=== PATIENT | male | born 1970 | race Caucasian/White ===

== ENCOUNTER 2017-07-03 23:42 | Inpatient (IN) | payer OTHER ==
[~2017-07-03] VITALS: Ht 175.3 cm; Wt 92.3 kg
--- NOTE | 2017-07-04 00:11 | ED GI/GU/ABDOMINAL COMPLAINT ---
History of Present Illness General Chief Complaint: General Adult Stated Complaint: "ABD PAIN, VOMITTING X2DAYS" Source: patient, family Exam Limitations: no limitations Vital Signs & Intake/Output Vital Signs & Intake/Output Vital Signs Date Time Temp Pulse Resp B/P B/P Pulse O2 O2 Flow FiO2 Mean Ox Delivery Rate 07/04 022 98.3 93 20 116/68 95 Room Air 07/04 0059 98.3 77 18 127/72 96 07/04 0058 98 Room Air 07/04 0036 99.2 90 20 122/79 97 Room Air Allergies Coded Allergies: No Known Allergies (07/04/17) Triage Nurses Notes Reviewed? yes Duration: day(s):, waxing and waning Quality/Severity: sharpness Location: lower abdomen and right lower quadrant Activities at Onset: none Prior Abdominal Problems: none HPI: 47-year-old gentleman presents with 2 day history of profound vomiting and diffuse lower abdominal pain. He states, "I just keep vomiting all the time. I can't stop vomiting. I think I have food poisoning." He has no fever or diarrhea chills shortness of breath or chest pain. He states he is otherwise well. He does not identify any suspicious food ingestions. Past History Travel History Traveled to [place] past 21 day No Medical History Any Pertinent Medical History? see below for history Surgical History Surgical History: none Psychosocial History What is your primary language [place] Citizen Family History Hx Contributory? No Review of Systems Review of Systems Constitutional: Reports: no symptoms. EENTM: Reports: no symptoms. Respiratory: Reports: no symptoms. Cardiovascular: Reports: no symptoms. GI: Reports: no symptoms. Genitourinary: Reports: no symptoms. Musculoskeletal: Reports: no symptoms. Skin: Reports: no symptoms. Neurological/Psychological: Reports: no symptoms. Hematologic/Endocrine: Reports: no symptoms. Immunologic/Allergic: Reports: no symptoms. All Other Systems: Reviewed and Negative Physical Exam Physical Exam Gastrointestinal: soft Comments: Review of Systems - except as otherwise noted in HPI Physical Exam Physical Exam General Appearance: well developed/nourished, no apparent distress Head: atraumatic, normal appearance Eyes: Bilateral: normal appearance. Ears, Nose, Throat: normal pharynx, normal ENT inspection Neck: normal inspection, supple, full range of motion Respiratory: normal breath sounds, chest non-tender, no respiratory distress, quiet respiration, lungs clear Cardiovascular: regular rate/rhythm Gastrointestinal: normal bowel sounds, soft, tender to rlq and suprapubic region. no organomegaly Back: normal inspection, normal range of motion Extremities: normal inspection, normal capillary refill, normal range of motion, no edema Neurologic/Psych: no motor/sensory deficits, awake, alert, oriented x 3 Skin: intact, normal color, warm/dry Core Measures ACS in differential dx? No Sepsis Present: No Sepsis Focused Exam Completed? No Progress Differential Diagnosis: appendicitis, cholecystitis, diverticulitis, gastritis, hepatitis Plan of Care: Orders Procedure Date/time Status Nothing by Mouth 07/04 B Active Vital Signs 07/04 0242 Active Teach/Educate 07/04 024 Active Pain Treatment and Response 07/04 0242 Active Nutritional Intake, Monitor 07/04 0242 Active Isolation 07/04 0242 Active Intake & Output 07/04 0242 Active Patient Care Conference 07/04 0242 Active Activity/Ambulation 07/04 0242 Active Pathway - chart 07/04 0152 Active Code Status 07/04 0152 Active Patient Data 07/[address] in observation 07/04 0133 Active URINALYSIS 07/04 0011 Complete VTE Mechanical Prophylaxis 07/04 UNK Active Vital Signs 07/04 UNK Active Intake & Output 07/04 UNK Active Activity/Ambulation 07/04 UNK Active TROPONIN LEVEL 07/03 2348 Complete LIPASE 07/03 2348 Complete HEPATIC FUNCTION PANEL 07/03 2348 Complete CBC WITHOUT DIFFERENTIAL 07/03 2348 Complete BASIC METABOLIC PANEL 07/03 2348 Complete AMYLASE 07/03 2348 Complete EKG 07/03 2348 Active Current Medications Sig/Nolberto Start time Last Medication Dose Stop Time Status Admin Ampicillin Sodium/ 3,000 MG Q6 07/04 0600 AC Sulbactam Sodium (Unasyn) Sodium Chloride 100 ML (Normal Saline 0.9%) Acetaminophen 650 MG Q6P PRN 07/04 0200 AC (Tylenol) Dextrose/Sodium 1,000 ML .Q10H 07/04 0200 AC 07/04 Chloride 0334 (D5W-1/2 Normal Saline 1000ML) Ketorolac 15 MG Q6-PRN PRN 07/04 0200 AC Tromethamine (Toradol) Morphine Sulfate 2 MG Q2P PRN 07/04 0200 AC (MORPHINE SULFATE) Morphine Sulfate 4 MG Q2P PRN 07/04 0200 AC (MORPHINE SULFATE) Ondansetron HCl 4 MG Q6P PRN 07/04 199 AC (Zofran) Laboratory Tests 07/04/17 0255: Urinalysis LIGHT H, Urine Color YEL, Urine Clarity CLEAR, Urine pH 6.5, Ur Specific [place] 1.015, Urine Protein TRACE H, Urine Ketones NEG, Urine Nitrite NEG, Urine Bilirubin NEG, Urine Urobilinogen 1.0, Ur Leukocyte Esterase NEG, Ur Microscopic SEDIMENT EXAMINED, Urine RBC 1-3, Urine WBC RARE, Urine Mucus FEW, Urine Hemoglobin NEG, Urine Glucose NEG 07/04/17 0021: Anion Gap 12, Estimated GFR > 60, BUN/Creatinine Ratio 15.6, Glucose 172 H, Calcium 8.9, Total Bilirubin 1.4 H, Direct Bilirubin 0.2, AST 27, ALT 41, Alkaline Phosphatase 62, Troponin I < 0.01, Total Protein 6.8, Albumin 3.9, Amylase 44, Lipase 72, CBC w Diff NO MAN DIFF REQ, RBC 4.67 L, MCV 90.3, MCH 30.8, MCHC 34.1, RDW 12.9, MPV 8.9, Gran % 82.4 H, Lymphocytes % 11.4 L, Monocytes % 5.8, Eosinophils % 0.2, Basophils % 0.2, Absolute Granulocytes 12.8 H, Absolute Lymphocytes 1.8, Absolute Monocytes 0.9 H, Absolute Eosinophils 0, Absolute Basophils 0 07/03/17 2348: D-Dimer High Sensitivty Cancelled Diagnostic Imaging: Viewed by Me: CT Scan. Discussed w/RAD: CT Scan. Radiology Impression: PATIENT: ROBEL BOLTON PRESENT AGE: 47 PATIENT ACCOUNT NO: [id number] : 70 LOCATION: [facility] ORDERING PHYSICIAN: Tong Mayer MD SERVICE DATE: 07/04/17 EXAM TYPE: CAT - CT ABD & PELVIS W/O IV CONTRAS EXAMINATION: CT ABDOMEN AND PELVIS WITHOUT CONTRAST CLINICAL INFORMATION: Right lower quadrant and suprapubic tenderness. COMPARISON: None TECHNIQUE: Multidetector volumetric imaging was performed from the superior aspect of the liver through the pubic symphysis. Sagittal and coronal reformatted images were obtained on the technologist's workstation. DLP: 492 mGy-cm FINDINGS: LUNG BASES: The visualized lung bases are unremarkable. LIVER, GALLBLADDER, AND BILIARY TREE: The liver is normal in size, shape, and attenuation. No focal hepatic lesion or biliary ductal dilatation is present. The gallbladder is unremarkable with no evidence of radiopaque gallstones, gallbladder wall thickening, or obvious pericholecystic inflammatory changes. PANCREAS: Unremarkable. SPLEEN: Unremarkable. ADRENAL GLANDS: Unremarkable. KIDNEYS AND URETERS: The kidneys are normal in size, shape, and attenuation. No hydronephrosis, hydroureter, or calculi seen. No perinephric stranding. BLADDER: Unremarkable. GASTROINTESTINAL TRACT: Small hiatal hernia. The stomach is otherwise unremarkable. The small bowel is normal in caliber. There is no obstruction. Prominent inflammatory changes are seen in the right lower quadrant. There is an appendicolith which measures 0.4 cm in diameter, and up to 0.6 cm in length. This is near the base of the appendix. The appendix is ill- defined, and measures up to 1.4 cm in diameter. There are small foci of gas in the adjacent soft tissues which are not definitively within a bowel lumen, suspicious for perforation. This can be seen on series 2 images 60, 62, and 63. There is no definite fluid collection. ABDOMINAL WALL: No significant hernia is appreciated. LYMPH NODES: Normal. VASCULAR: Unremarkable. PELVIC VISCERA: The prostate and seminal vesicles are unremarkable. OSSEOUS STRUCTURES: No acute or suspicious osseous abnormality. IMPRESSION: Acute appendicitis. Prominent inflammatory changes in the right lower quadrant surrounding the appendix. Small foci of gas are also seen in the region of inflammation which are likely extraluminal, suspicious for a perforation. No fluid collection. This critical result was discussed with Tong Mayer MD by telephone at 07/04/2017 12 :40 AM and it was ascertained that the content and urgency of the report was understood at the time of direct communication. DICTATED BY: Sree Miller MD DATE/TIME DICTATED:07/04/1736 LOOM SETTER FOURDRINIER:ANTIONE DATE/TIME TRANSCRIBED:07/04/1736 CONFIDENTIAL, DO NOT COPY WITHOUT APPROPRIATE AUTHORIZATION. <Electronically signed in Other Vendor System> SIGNED BY: Sree Miller MD 07/04/17 0044 Initial ED EKG: nsr, no acute changes. Departure Departure Disposition: STILL A PATIENT Condition: Stable Clinical Impression Primary Impression: Appendicitis Referrals: Christin Moon MD (PCP/Family) Departure Forms: Customer Survey General Discharge Information Comments 07/04/17, 0:41... discussed with [facility]... pt with enlarged appy, with gas, suggestive of perforation. Observation Note Spoke With: Marlin BOURNE,Nickolas N. Place Patient In: Non-ED OBS Care Area Rationale for Observation: My rational for observation is as follows . pt with perforated appendicitis, otherwise well... to be placed in observation prior to surgery in AM.
[2017-07-04 00:43] LABS: ABSOLUTE BASOPHIL COUNT 0 /CUMM (0.0-0.2); ABSOLUTE EOSINOPHIL COUNT 0 /CUMM (0.0-0.7); ABSOLUTE GRANULOCYTE CT 12.8 /CUMM (1.4-6.5); ABSOLUTE LYMPH COUNT 1.8 /CUMM (1.2-3.4); ABSOLUTE MONOCYTE COUNT 0.9 /CUMM (0.10-0.60); BASOPHIL % 0.2 % (0.0-2.0); EOSINOPHIL % 0.2 % (0-5); HEMATOCRIT 42.2 % (42-52); MEAN CORPUSCULAR HGB 30.8 PG (27.0-31.0); MEAN CORPUSCULAR HGB CONC 34.1 G/DL (33.0-37.0); MEAN CORPUSCULAR VOLUME 90.3 FL (80.0-94.0); MEAN PLATELET VOLUME 8.9 FL (7.4-10.4); PLATELET COUNT 194 /CUMM (130-400); RBC DISTRIBUTION WIDTH 12.9 % (11.5-14.5); RED BLOOD CELL CT 4.67 /CUMM (4.70-6.10); WHITE BLOOD CELL COUNT 15.5 /CUMM (4.8-10.8)
--- NOTE | 2017-07-04 00:44 | CT SCAN REPORT ---
EXAMINATION: CT ABDOMEN AND PELVIS WITHOUT CONTRAST CLINICAL INFORMATION: Right lower quadrant and suprapubic tenderness. COMPARISON: None TECHNIQUE: Multidetector volumetric imaging was performed from the superior aspect of the liver through the pubic symphysis. Sagittal and coronal reformatted images were obtained on the technologist's workstation. DLP: 492 mGy-cm FINDINGS: LUNG BASES: The visualized lung bases are unremarkable. LIVER, GALLBLADDER, AND BILIARY TREE: The liver is normal in size, shape, and attenuation. No focal hepatic lesion or biliary ductal dilatation is present. The gallbladder is unremarkable with no evidence of radiopaque gallstones, gallbladder wall thickening, or obvious pericholecystic inflammatory changes. PANCREAS: Unremarkable. SPLEEN: Unremarkable. ADRENAL GLANDS: Unremarkable. KIDNEYS AND URETERS: The kidneys are normal in size, shape, and attenuation. No hydronephrosis, hydroureter, or calculi seen. No perinephric stranding. BLADDER: Unremarkable. GASTROINTESTINAL TRACT: Small hiatal hernia. The stomach is otherwise unremarkable. The small bowel is normal in caliber. There is no obstruction. Prominent inflammatory changes are seen in the right lower quadrant. There is an appendicolith which measures 0.4 cm in diameter, and up to 0.6 cm in length. This is near the base of the appendix. The appendix is ill-defined, and measures up to 1.4 cm in diameter. There are small foci of gas in the adjacent soft tissues which are not definitively within a bowel lumen, suspicious for perforation. This can be seen on series 2 images 60, 62, and 63. There is no definite fluid collection. ABDOMINAL WALL: No significant hernia is appreciated. LYMPH NODES: Normal. VASCULAR: Unremarkable. PELVIC VISCERA: The prostate and seminal vesicles are unremarkable. OSSEOUS STRUCTURES: No acute or suspicious osseous abnormality. IMPRESSION: Acute appendicitis. Prominent inflammatory changes in the right lower quadrant surrounding the appendix. Small foci of gas are also seen in the region of inflammation which are likely extraluminal, suspicious for a perforation. No fluid collection. This critical result was discussed with Tong Mayer MD by telephone at 07/04/2017 12:40 AM and it was ascertained that the content and urgency of the report was understood at the time of direct communication.
[2017-07-04 00:53] LABS: GRANULOCYTE % 82.4 % (42.2-75.2)
--- NOTE | 2017-07-04 01:46 | History & Physical Pre-Op ---
General Information and HPI MD Statement: I have seen and personally examined ROBEL BOLTON and documented this H&P. The patient is a 47 year old M who presented with a patient stated chief complaint of [abdominal pain]. Source of Information: patient Exam Limitations: no limitations History of Present Illness: 47-year-old male presents to the ER with severe right lower quadrant abdominal pain. He states that 2 days ago he started with sudden onset of nausea which progressed to vomiting that persisted throughout the evening and all night long. He felt better the following day but started to get worsening abdominal pain throughout the day. This evening he came to the ER with severe right lower quadrant abdominal pain. He states he had a T-max of 100.8 at home. Upon arrival to the ER, he received IV antiemetics and pain medication and his symptoms significantly improved to the point where he is nearly asymptomatic at this time. CT scan was performed which shows acute appendicitis with questionable microperforation. Surgery was consulted for further management. He denies any previous symptoms or any other significant medical problems. No previous abdominal surgeries. Allergies/Medications Allergies: Coded Allergies: No Known Allergies (07/04/17) Home Med list Acetaminophen (Tylenol Extra Strength) 500 MG TABLET 1 TAB PO Q4-6 PRN PRN pain control alternatively to percocet. do not combine. Docusate Sodium (Colace) 100 MG CAPSULE 1 CAP PO BID PRN CONSTIPATION stool softener available over the counter. hold for loose stool. Oxycodone HCl/Acetaminophen (Percocet 5-325 MG Tablet) 5 MG-325 MG TABLET 1-2 TAB PO Q4-6 PRN PRN pain control tylenol alternatively. do not combine. 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 Review of Systems Review of Systems: Review of systems: See HPI, all other systems negative. Constitutional: See HPI HEENT: No visual changes no sore throat no congestion Cardiovascular: No chest pain ,palpitation , orthopnea or ankle swelling Skin: No jaundice no rashes Respiratory: No dyspnea cough sputum or hemoptysis GI: See HPI : No dysuria no hematuria Musclulo skeletal: No back pain no neck pain, Neurologic: No numbness no confusion Psych: No stress anxiety or depression,. Heme/endocrine: No bruising no bleeding no polyuria or polydipsia Immunology: No splenectomy or history of AIDS Review of Systems Constitutional: Reports: chills, fever. EENTM: Reports: no symptoms, see HPI. Exam & Diagnostic Data Last 24 Hrs of Vital Signs/I&O Vital Signs Date Time Temp Pulse Resp B/P B/P Pulse O2 O2 Flow FiO2 Mean Ox Delivery Rate 07/04 005 98.3 77 18 127/72 96 07/04 0058 98 Room Air 07/04 0036 99.2 90 20 122/79 97 Room Air Intake & Output 07/04 0800 07/04 0000 07/03 1600 Intake Total Output Total Balance Patient 193 lb Weight Physical Exam: Well-developed well-nourished person in no acute distress HEENT: Normal EENT exam, extraocular motion intact, Pharynx normal. No swelling or edema. Neck: Supple, no lymphadenopathy, normal range of motion without pain or tenderness Back: Nontender, no CVA tenderness. Full range of motion Cardiovascular: Regular rate and rhythms no murmurs, normal JVP Respiratory: Chest nontender. No respiratory distress. Breath sounds clear to auscultation bilaterally Abdomen: Soft, tenderness in the right lower quadrant over McBurney's point. Positive Rovsing sign. No peritoneal signs. No significant guarding. Equivocal psoas sign. Nondistended, no appreciable organomegaly. Normal bowel sounds. No ascites Extremity: No edema, no calf tenderness to palpation, normal and equal pulses. Neuro: Alert oriented x3, motor sensory normal, cranial nerves II through XII grossly intact. Skin: No appreciable rash on exposed skin, skin is warm and dry. Psych: Mood and affect is normal, memory and judgment is normal. Last 24 Hrs of Labs/Reid: Laboratory Tests 07/04/17 0021: Anion Gap 12, Estimated GFR > 60, BUN/Creatinine Ratio 15.6, Glucose 172 H, Calcium 8.9, Total Bilirubin 1.4 H, Direct Bilirubin 0.2, AST 27, ALT 41, Alkaline Phosphatase 62, Troponin I < 0.01, Total Protein 6.8, Albumin 3.9, Amylase 44, Lipase 72, CBC w Diff NO MAN DIFF REQ, RBC 4.67 L, MCV 90.3, MCH 30.8, MCHC 34.1, RDW 12.9, MPV 8.9, Gran % 82.4 H, Lymphocytes % 11.4 L, Monocytes % 5.8, Eosinophils % 0.2, Basophils % 0.2, Absolute Granulocytes 12.8 H, Absolute Lymphocytes 1.8, Absolute Monocytes 0.9 H, Absolute Eosinophils 0, Absolute Basophils 0 07/03/17 2348: D-Dimer High Sensitivty Cancelled Diagnostic Data Other Results PATIENT: ROBEL BOLTON PRESENT AGE: 47 PATIENT ACCOUNT NO: [id number] : 70 LOCATION: ER ORDERING PHYSICIAN: Tong Mayer MD SERVICE DATE: 07/04/17 EXAM TYPE: CAT - CT ABD & PELVIS W/O IV CONTRAS EXAMINATION: CT ABDOMEN AND PELVIS WITHOUT CONTRAST CLINICAL INFORMATION: Right lower quadrant and suprapubic tenderness. COMPARISON: None TECHNIQUE: Multidetector volumetric imaging was performed from the superior aspect of the liver through the pubic symphysis. Sagittal and coronal reformatted images were obtained on the technologist's workstation. DLP: 492 mGy-cm FINDINGS: LUNG BASES: The visualized lung bases are unremarkable. LIVER, GALLBLADDER, AND BILIARY TREE: The liver is normal in size, shape, and attenuation. No focal hepatic lesion or biliary ductal dilatation is present. The gallbladder is unremarkable with no evidence of radiopaque gallstones, gallbladder wall thickening, or obvious pericholecystic inflammatory changes. PANCREAS: Unremarkable. SPLEEN: Unremarkable. ADRENAL GLANDS: Unremarkable. KIDNEYS AND URETERS: The kidneys are normal in size, shape, and attenuation. No hydronephrosis, hydroureter, or calculi seen. No perinephric stranding. BLADDER: Unremarkable. GASTROINTESTINAL TRACT: Small hiatal hernia. The stomach is otherwise unremarkable. The small bowel is normal in caliber. There is no obstruction. Prominent inflammatory changes are seen in the right lower quadrant. There is an appendicolith which measures 0.4 cm in diameter, and up to 0.6 cm in length. This is near the base of the appendix. The appendix is ill-defined, and measures up to 1.4 cm in diameter. There are small foci of gas in the adjacent soft tissues which are not definitively within a bowel lumen, suspicious for perforation. This can be seen on series 2 images 60, 62, and 63. There is no definite fluid collection. ABDOMINAL WALL: No significant hernia is appreciated. LYMPH NODES: Normal. VASCULAR: Unremarkable. PELVIC VISCERA: The prostate and seminal vesicles are unremarkable. OSSEOUS STRUCTURES: No acute or suspicious osseous abnormality. IMPRESSION: Acute appendicitis. Prominent inflammatory changes in the right lower quadrant surrounding the appendix. Small foci of gas are also seen in the region of inflammation which are likely extraluminal, suspicious for a perforation. No fluid collection. This critical result was discussed with Tong Mayer MD by telephone at 07/04/2017 12:40 AM and it was ascertained that the content and urgency of the report was understood at the time of direct communication. DICTATED BY: Paul BOURNE,Sree DATE/TIME DICTATED:07/04/1736 LOG DECKMAN:ANTIONE DATE/TIME TRANSCRIBED:07/04/1736 Assessment/Plan Assessment/Plan: 47-year-old male presents to the ER with abdominal pain in the right lower quadrant, with a CAT scan positive for acute appendicitis Patient placed in observation, he will require laparoscopic appendectomy which will occur some time tomorrow, hopefully late morning. If surgery goes without complications, he may be able to be discharged home after. He will be kept n.p.o., on IV fluids, given Unasyn 3 g every 6 hours, IV antiemetics and IV narcotics as needed. Patient understands and agrees with this with plan, discussed with Nickolas Isaac MD. As Ranked By This Provider Problem List: 1. Appendicitis, acute
--- NOTE | 2017-07-04 01:46 | Admission Core Measures ---
Acute Coronary Syndrome (CM) ACS Core Measures Acute Coronary Syndrome Diagnosis No Congestive Heart Failure (NEW) CHF Core Measures Congestive Heart Failure Diagnosis No Cerebrovascular Accident (NEW) CVA Core Measures CVA/TIA Diagnosis No Venous Thromboembolism VTE Core [place] (View Protocol) VTE Risk Factors Age>40 No Mechanical VTE Prophylaxis d/t N/A MechProphylax Ordered No VTE Pharm Prophylaxis d/t NA PharmProphylax ordered Problem List As ranked by this Provider includes Assessment & Plan 1. Appendicitis, acute
[2017-07-04 02:29] VITALS: BP 116/68
[2017-07-04 06:20] VITALS: BP 118/72
[2017-07-04 12:00] VITALS: BP 130/80
--- NOTE | 2017-07-04 12:06 | History & Physical Pre-Op ---
See Addendum General Information and HPI Source of Information: patient Exam Limitations: no limitations History of Present Illness: CC: abdominal pain HPI: 47-year-old otherwise healthy no meds nonsmoker nondiabetic no family history of appendicitis on Sunday after a normal celebration with lots of food at 9 PM he started having abdominal pain felt the gas bubble and vomiting overnight which persisted into yesterday and came to the ER. Initially he thought was food poisoning pain was mostly lower and then especially on the right side no dysuria no bleeding per rectum no bloody urine pain didn't radiate its constant its relieved with IV analgesics no recent flulike symptoms no changes in bowel habits weight or appetite no constipation he did have a fever yesterday. I've reviewed the [facility]. No history of GERD, PUD, bleeding problems, heart disease or issues with anesthesia. 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 Review of Systems Review of Systems: Constitutional: No fever, sweats or weight loss ENMT: No sore throat Cardiovascular: No chest pain, palpitations or leg swelling Respiratory: No shortness of breath, cough, or sputum or dyspnea on exertion GI: No GERD or bleeding per rectum : No dysuria or hematuria Musculoskeletal: No new muscle weakness, bone or joint pain Skin / Breast: No jaundice, rashes or itching Psychiatric: No history of drug or alcohol abuse no depression or anxiety Hematologic / lymphatic system: No problems with excessive bleeding, bruising, or blood clots Exam & Diagnostic Data Last 24 Hrs of Vital Signs/I&O I reviewed Vital Signs Date Time Temp Pulse Resp B/P B/P Pulse O2 O2 Flow FiO2 Mean Ox Delivery Rate 07/04 1200 98.6 112 20 130/80 94 07/04 0620 98.5 89 18 118/72 96 Room Air 07/04 0229 98.3 93 20 116/68 95 Room Air 07/04 0059 98.3 77 18 127/72 96 07/04 0058 98 Room Air 07/04 0036 99.2 90 20 122/79 97 Room Air I reviewed Intake & Output 07/04 1600 07/04 0800 07/04 0000 Intake Total 900 Output Total 200 Balance 700 Intake, IV 900 Output, Urine 200 Patient 193 lb Weight Physical Exam: Constitutional: pleasant, no acute distress, conversant Eyes: sclera anicteric ENMT: ears and nose atraumatic, moist mucous membranes, good dentition, no lip lesions Neck: Supple, trachea is midline, no cervical or supraclavicular adenopathy and no palpable thyromegaly Cardiovascular: S1, S2, no murmurs, no peripheral edema Respiratory: clear to auscultation with normal respiratory effort and no intercostal retractions GI: abdomen soft, McBurney's point tenderness, nondistended, no palpable hepatosplenomegaly Extremities / lymphatics: symmetrically warm, free range of motion no peripheral edema, no cervical, supraclavicular, axillary, or inguinal adenopathy Musculoskeletal: Did not evaluate gait and station, no digital cyanosis, good muscle strength and tone no atrophy, motor grossly 5 out of 5 throughout Skin: no jaundice, no rashes warm, nondiaphoretic, no areas of erythema or induration Psychiatric: mood and affect are appropriate and alert and oriented to person place and time Last 24 Hrs of Labs/Reid: I reviewed Laboratory Tests 07/04/17 0255: Urinalysis LIGHT H, Urine Color YEL, Urine Clarity CLEAR, Urine pH 6.5, Ur Specific [place] 1.015, Urine Protein TRACE H, Urine Ketones NEG, Urine Nitrite NEG, Urine Bilirubin NEG, Urine Urobilinogen 1.0, Ur Leukocyte Esterase NEG, Ur Microscopic SEDIMENT EXAMINED, Urine RBC 1-3, Urine WBC RARE, Urine Mucus FEW, Urine Hemoglobin NEG, Urine Glucose NEG 07/04/17 0021: Anion Gap 12, Estimated GFR > 60, BUN/Creatinine Ratio 15.6, Glucose 172 H, Calcium 8.9, Total Bilirubin 1.4 H, Direct Bilirubin 0.2, AST 27, ALT 41, Alkaline Phosphatase 62, Troponin I < 0.01, Total Protein 6.8, Albumin 3.9, Amylase 44, Lipase 72, CBC w Diff NO MAN DIFF REQ, RBC 4.67 L, MCV 90.3, MCH 30.8, MCHC 34.1, RDW 12.9, MPV 8.9, Gran % 82.4 H, Lymphocytes % 11.4 L, Monocytes % 5.8, Eosinophils % 0.2, Basophils % 0.2, Absolute Granulocytes 12.8 H, Absolute Lymphocytes 1.8, Absolute Monocytes 0.9 H, Absolute Eosinophils 0, Absolute Basophils 0 07/03/17 2348: D-Dimer High Sensitivty Cancelled Diagnostic Data Other Results PATIENT: ROBEL BOLTON PRESENT AGE: 47 PATIENT ACCOUNT NO: [id number] : 70 LOCATION: [facility] ORDERING PHYSICIAN: Tong Mayer MD SERVICE DATE: 07/04/17-0011 EXAM TYPE: CAT - CT ABD & PELVIS W/O IV CONTRAS EXAMINATION: CT ABDOMEN AND PELVIS WITHOUT CONTRAST CLINICAL INFORMATION: Right lower quadrant and suprapubic tenderness. COMPARISON: None TECHNIQUE: Multidetector volumetric imaging was performed from the superior aspect of the liver through the pubic symphysis. Sagittal and coronal reformatted images were obtained on the technologist's workstation. DLP: 492 mGy-cm FINDINGS: LUNG BASES: The visualized lung bases are unremarkable. LIVER, GALLBLADDER, AND BILIARY TREE: The liver is normal in size, shape, and attenuation. No focal hepatic lesion or biliary ductal dilatation is present. The gallbladder is unremarkable with no evidence of radiopaque gallstones, gallbladder wall thickening, or obvious pericholecystic inflammatory changes. PANCREAS: Unremarkable. SPLEEN: Unremarkable. ADRENAL GLANDS: Unremarkable. KIDNEYS AND URETERS: The kidneys are normal in size, shape, and attenuation. No hydronephrosis, hydroureter, or calculi seen. No perinephric stranding. BLADDER: Unremarkable. GASTROINTESTINAL TRACT: Small hiatal hernia. The stomach is otherwise unremarkable. The small bowel is normal in caliber. There is no obstruction. Prominent inflammatory changes are seen in the right lower quadrant. There is an appendicolith which measures 0.4 cm in diameter, and up to 0.6 cm in length. This is near the base of the appendix. The appendix is ill-defined, and measures up to 1.4 cm in diameter. There are small foci of gas in the adjacent soft tissues which are not definitively within a bowel lumen, suspicious for perforation. This can be seen on series 2 images 60, 62, and 63. There is no definite fluid collection. ABDOMINAL WALL: No significant hernia is appreciated. LYMPH NODES: Normal. VASCULAR: Unremarkable. PELVIC VISCERA: The prostate and seminal vesicles are unremarkable. OSSEOUS STRUCTURES: No acute or suspicious osseous abnormality. IMPRESSION: Acute appendicitis. Prominent inflammatory changes in the right lower quadrant surrounding the appendix. Small foci of gas are also seen in the region of inflammation which are likely extraluminal, suspicious for a perforation. No fluid collection. This critical result was discussed with Tong Mayer MD by telephone at 07/04/2017 12:40 AM and it was ascertained that the content and urgency of the report was understood at the time of direct communication. 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 I explained to the patient that this is a potentially life-threatening infection for which I recommend an appendectomy. I feel antibiotics often alone are not enough and sometimes there is an occult malignancy. The severity of infection is related to the chance of perforation which usually increases after about 24 hours fortunately the patient is presenting earlier. Depending on what we find intraoperatively they may be discharged the same day or may need to stay for more IV antibiotics, at depends. I also discussed the possibility of a postoperative infection whether superficial or deep, this is also related to the initial severity and may also appear even a week later after an initial interval of well-being during the recovery. I explained the operation we usually do it laparoscopically rarely converting to open, depending on the amount of inflammation and whether the anatomy is very unusual all to avoid inadvertent injury to surrounding surrounding structures such as bowel and blood vessels and ureter. We also discussed the potential risks, benefits and alternatives to the procedure and surgery in general, issues that included but were not limited to, anesthetic risks hemorrhage requiring transfusion, the risk of transfusion itself, infection, heart attack, stroke, . As Ranked By This Provider Problem List: 1. Appendicitis, acute
--- NOTE | 2017-07-04 12:40 | Patient Discharge Instructions ---
Discharge Instructions General Discharge Information You were seen/treated for: acute appendicitis with perforation You had these procedures: laparoscopic appendectomy (07/04/17) Watch for these problems: fever>101.3, increased pain, redness/swelling/drainage, dizziness, shortness of breath, chest pains No bath, but you may shower: Yes Other wound care: Allow white steri strips to fall off on their own Keep incisions clean & dry Special Instructions: Take pain medication as needed No work until cleared by surgeon Follow-up in the office in 7-10 days Diet Continue normal diet: Yes Recommended Diet: Regular Activity Full Activity/No Limits: No Activity Self Limited: Yes Pounds, do NOT lift more than: 10 Other activity limits: no heavy lifting. no strenuous activity. Acute Coronary Syndrome Inclusion Criteria At DC or during hospital stay patient has or had the following: ACS DIAGNOSIS No Discharge Core Measures Meds if any: Prescribed or Continued at Discharge Meds if any: NOT Prescribed or Continued at Discharge Congestive Heart Failure Inclusion Criteria At DC or during hospital stay patient has or had the following: CHF DIAGNOSIS No Discharge Core Measures Meds if any: Prescribed or Continued at Discharge Meds if any: NOT Prescribed or Continued at Discharge Cerebrovascular accident Inclusion Criteria At DC or during hospital stay patient has or had the following: CVA/TIA Diagnosis No Discharge Core Measures Meds if any: Prescribed or Continued at Discharge Meds if any: NOT Prescribed or Continued at Discharge Venous thromboembolism Inclusion Criteria VTE Diagnosis No VTE Type NONE VTE Confirmed by (Test) NONE Discharge Core Measures - Per Current guidelines, there needs to be overlap - treatment for the first 5 days of Warfarin therapy. - If discharged on Warfarin prior to 5 days of - overlap therapy, the patient will need to be - assessed for post discharge needs including - *Post discharge parental anticoagulation - *Warfarin and/or parental anticoagulation education - *Follow up date to check INR post discharge At least 5 days overlap therapy as Inpatient No Meds if any: Prescribed or Continued at Discharge Note: Overlap Therapy is Warfarin and Anticoagulant Meds if any: NOT Prescribed or Continued at Discharge
[2017-07-04] MEDS ORDERED: PERCOCET 5-3251 EACH PO (12:41)
[2017-07-04] MEDS ORDERED: COLACE100 M1 PO (12:41)
[2017-07-04] MEDS ORDERED: TYLENOL EXTRA500 M2 PO (12:41)
--- NOTE | 2017-07-04 15:15 | Operative Report ---
Operative/Inv Procedure Report Surgery Date: 07/04/17 Name of Procedure: Laparoscopic appendectomy Pre-Operative Diagnosis: Acute appendicitis Post-Operative Diagnosis: Same, perforated Estimated Blood Loss: scant Surgeon/Field Return Repairer: Marlin BOURNE,Nickolas GUNTER Anesthesia: general endotracheal tube Operative/Procedure Note Note: Patient was placed on the OR table in the supine position. After successful induction of general anesthesia the patient's abdomen was prepped clipped and draped in the usual sterile fashion The left arm was tucked. Local anesthetic was injected at the top of the umbilicus and entry into the peritoneum was established via the open Costello technique: a one cm curved incision was made at the top of the umbilicus, the linea alba was secured between 2 pediatric Mona clamps and incised vertically, 0-Vicryl stay sutures were placed on each side and then while retracting upwards, the peritoneal layer was entered sharply, then through that small opening, using an S retractor acting like a shoehorn, a 10 mm blunt trocar was inserted obliquely to the right and secured with the stay sutures. The gas was turned on to maximum of 15 mm, two 5 mm dissecting ports were then inserted, one suprapubic and one left lower quadrant, laterally. We used a local anesthetic needle to guide their trajectories, particular attention was given to avoid injury to the bowel, the bladder and the epigastric vessels. At this point there was pus and fibrin peel in the lower abdomen more in the right lower quadrant. Then our attention was directed to the right lower quadrant, the small bowel was swept superiorly and medially, revealing the base of the cecum. A perforated appendix was then mobilized by it from the lateral and inferior peritoneal attachments using cautery. Using a combination of a [place] dissector, peanut dissector and a Sindhu clamp, a window was developed between the mesoappendix and the base of the appendix. This window is then used to divide the appendix at the base and the mesoappendix with a linear stapling device, separately, using an intestinal cartridge for the appendix and a vascular cartridge for the mesoappendix; the division of the appendix includes a small flange of cecal base. The appendix is lowered into an Endobag and set aside. The staple lines were checked for bleeding and small oozing was controlled with light zaps of the cautery. We deliberately irrigate the area including up by the liver and down in the pelvis, several rounds, also trying to get the fibrin peel whenever possible, checking the staple lines and each time to make sure that there is no ongoing bleeding. Next the instruments and the trochars and Endobag are removed, letting the gas out. We closed the umbilical fascial incision with a [id number] 0 vicryl suture, then the 3 skin incisions are closed with multiple interrupted subcuticular 4-0 Biosyn sutures, 3 for the umbilical, 1 each for the smaller ones, then covered with Mastisol, Steri-Strips and Band-Aids. EBL minimal Lap and sponge and sponge counts: correct Wound expectancy: infected IV fluids: crystalloid Complications: none Patient tolerated the procedure well was awakened and extubated and returned to the recovery room in satisfactory condition.
[2017-07-04 16:43] VITALS: BP 102/58
[2017-07-04 22:05] VITALS: BP 112/80
--- NOTE | 2017-07-05 00:08 | PN- General Surgery ---
Subjective Subjective: POC FEELING OK, SOME ABD SORENESS. NO N/V. LOIS CLEARS. +VOID, DARK IN COLOR PER PT Objective Vital Signs and I&Os Vital Signs Date Time Temp Pulse Resp B/P B/P Pulse O2 O2 Flow FiO2 Mean Ox Delivery Rate 07/04 2205 98.0 73 20 112/80 96 Room Air 07/04 1643 98.7 78 18 102/58 95 Room Air 07/04 1200 98.6 112 20 130/80 94 07/04 0620 98.5 89 18 118/72 96 Room Air 07/04 0229 98.3 93 20 116/68 95 Room Air 07/04 0059 98.3 77 18 127/72 96 07/04 0058 98 Room Air 07/04 0036 99.2 90 20 122/79 97 Room Air Intake & Output 07/05 0800 07/05 0000 07/04 1600 07/04 0800 07/04 0000 07/03 1600 Intake Total 1800 900 900 Output Total 500 400 200 Balance 1300 500 700 Intake, IV 800 900 900 Intake, Oral 1000 Number 0 Bowel Movements Output, Urine 500 400 200 Patient 193 lb Weight Physical Exam: gen- nad card- rrr abd- softly dist, incisions dressed- cdi, ttp Assessment/Plan Assessment/Plan A- POD0 sp lap appy for perforated appendicitis, stable with appropriate postop discomfort P- cont clrs cont abx for perfed appy oob, ambulate strict i&os dvt ppx will dw attending Core Measures Venous Thromboembolism VTE Risk Factors Age>40 No Mechanical VTE Prophylaxis d/t N/A MechProphylax Ordered No VTE Pharm Prophylaxis d/t NA PharmProphylax ordered
[2017-07-05 06:30] VITALS: BP 132/86
[2017-07-05 08:36] LABS: ABSOLUTE BASOPHIL COUNT 0 /CUMM (0.0-0.2); ABSOLUTE EOSINOPHIL COUNT 0 /CUMM (0.0-0.7); ABSOLUTE GRANULOCYTE CT 12.1 /CUMM (1.4-6.5); BASOPHIL % 0 % (0.0-2.0); EOSINOPHIL % 0 % (0-5); MEAN CORPUSCULAR HGB 31.4 PG (27.0-31.0); MEAN CORPUSCULAR HGB CONC 33.9 G/DL (33.0-37.0); MEAN CORPUSCULAR VOLUME 92.7 FL (80.0-94.0); MEAN PLATELET VOLUME 9.5 FL (7.4-10.4); RBC DISTRIBUTION WIDTH 13.1 % (11.5-14.5); RED BLOOD CELL CT 3.86 /CUMM (4.70-6.10); WHITE BLOOD CELL COUNT 14.1 /CUMM (4.8-10.8)
[2017-07-05 09:09] LABS: HEMATOCRIT 35.8 % (42-52)
[2017-07-05 09:42] LABS: GRANULOCYTE % 86.2 % (42.2-75.2); PLATELET COUNT 152 /CUMM (130-400)
[2017-07-05 10:43] VITALS: BP 150/70
--- NOTE | 2017-07-05 14:25 | PN- General Surgery ---
See Addendum Subjective Subjective: No acute post operative events. Notes a tingling sensation in right hand, thumb , index and middle finger, that began post operatively. Is lessening this am. Denies hx of cts. Surgical pain controlled. No nausea or vomitting, tolerating clear liquid diet. Has passed flatus, no bm. Has been voiding. Was concerned earlier, pre op, about concentrated urine, feels he is more hydrated now and notes urine analytical scientist color. Denies chest pain, shortness of breath and difficulty breathing. Denies fevers or flu like symptoms. Objective Vital Signs and I&Os Vital Signs Date Time Temp Pulse Resp B/P B/P Pulse O2 O2 Flow FiO2 Mean Ox Delivery Rate 07/05 0630 98.3 77 20 132/86 94 Room Air 07/04 2205 98.0 73 20 112/80 96 Room Air 07/04 1643 98.7 78 18 102/58 95 Room Air 07/04 1200 98.6 112 20 130/80 94 Intake & Output 07/05 1600 07/05 0800 07/05 0000 07/04 1600 07/04 0800 07/04 0000 Intake Total 880 1800 900 900 Output Total 2400 500 400 200 Balance -1520 1300 500 700 Intake, IV 700 800 900 900 Intake, Oral 180 1000 Number 0 Bowel Movements Output, Urine 2400 500 400 200 Patient 193 lb 193 lb Weight Physical Exam: General: Alert and oreinted x3, no acute distress Cardiac: RRR, s1s2 Pulm: CTA, non-labored respiratory effort Abdomen: Soft, some residual diffuse soreness, no guarding, no rebound, no sign of peritonitis presently. Kamini-incisional tenderness noted. Dressings dry and intact. BS ausculated Extremities: Moves all extremities. Neurovascular status intact to BLE. Bilateral calves soft and non-tender. Of note: RUE with a tingling sensation along arroyo aspect of median nerve innervation of hand. No limitations to ROM. Radial and ulnar pulses intact. 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 Assessment/Plan Assessment/Plan This is a 47 year old male, POD 1, s/p laparoscopic appendectomy for acute appendicitis with perforation. New onset tingling right hand, median nerve innervation. -DC iv fluids, continue clear liquid diet for now -oob -Will continue to monitor hand discomfort, will consider splint if worsens -Continue unasyn -Hep sub q, alps for dvt ppx Will discuss with Dr. Isaac Core Measures Venous Thromboembolism VTE Risk Factors Age>40 No Mechanical VTE Prophylaxis d/t N/A MechProphylax Ordered No VTE Pharm Prophylaxis d/t NA PharmProphylax ordered
[2017-07-05 14:35] VITALS: BP 160/90
--- NOTE | 2017-07-05 15:41 | Surgical Discharge Summary ---
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 Home Who Do You Live With? Family Services at Home: None What is Your Primary Language? [facility] Course Course Attending Physician: Nickolas Isaac MD Primary Care Physician: Red BOURNE,[facility] Course: 47-year-old male was admitted with acute appendicitis through the emergency department after CT scan confirmed his diagnosis. Later on that same day he was taken to the operating room for laparoscopic appendectomy. It was found that the appendix had perforated and patient had peritonitis. He was continued on antibiotics and his diet was slowly advanced as tolerated. His vital signs remained stable and he was closely monitored. When he was deemed well enough, he was discharged home in stable condition to continue his antibiotic course as outpatient with close follow-up as outpatient Complications: Perforated appendix Allergies: Coded Allergies: No Known Allergies (07/04/17) Disposition Summary Disposition Principal Diagnosis: Acute appendicitis with perforation Additional Diagnosis: Status post laparoscopic appendectomy Discharge Disposition: home or self care Discharge Instructions General Discharge Information Code Status: Full Code Patient's Diet: Regular Patient's Activity: No strenuous physical activity, no lifting over 10 pounds Follow-Up Instructions/Appts: Continue antibiotics as directed, pain medication as needed, follow-up in 7-10 days as outpatient with Nickolas Isaac MD Medications at Discharge Discharge Medications: Start taking the following new medications: Oxycodone HCl/Acetaminophen (Percocet 5-325 MG Tablet) 5 MG-325 MG TABLET 1-2 Tablet ORAL EVERY 4-6 HOURS NEEDED as needed for pain control Qty = 30 No Refills Instructions: tylenol alternatively. do not combine. Docusate Sodium (Colace) 100 MG CAPSULE 1 Capsule ORAL TWICE DAILY as needed for CONSTIPATION Qty = 30 No Refills Instructions: stool softener available over the counter. hold for loose stool. Acetaminophen (Tylenol Extra Strength) 500 MG TABLET 1 Tablet ORAL EVERY 4-6 HOURS NEEDED as needed for pain control Days = 7 No Refills Instructions: alternatively to percocet. do not combine.
[2017-07-05 22:45] VITALS: BP 127/90
[2017-07-06 06:04] VITALS: BP 120/68
--- NOTE | 2017-07-06 07:45 | PN- General Surgery ---
Subjective Subjective: Emesis x 2 yesterday, now resolved after reglan. Denies nausea or vomiting. Tolerating clear liquids, voiding spontaneously. Pain well controlled with toradol. Willing to advance diet. +flatus and watery stool. Objective Vital Signs and I&Os Vital Signs Date Time Temp Pulse Resp B/P B/P Pulse O2 O2 Flow FiO2 Mean Ox Delivery Rate 07/06 0604 98.0 71 20 120/68 92 Room Air 07/05 2245 98.2 86 20 127/90 96 07/05 1435 98.5 100 20 160/90 95 Room Air 07/05 1043 98.4 84 20 150/70 95 Room Air Intake & Output 07/06 0800 07/06 0000 07/05 1600 07/05 0800 07/05 0000 07/04 1600 Intake Total 560 6603 472 9755 900 Output Total 250 1875 2400 500 400 Balance -250 560 -595 -1520 1300 500 Intake, IV 200 500 700 800 900 Intake, Oral 360 628 323 7369 Number 0 0 Bowel Movements Output, Urine 250 1875 2400 500 400 Patient 193 lb Weight Physical Exam: General: Alert and oriented x3, no acute distress Cardiac: Regular rate, rhythm. Pulm: Clear to auscultation bilaterally. Abdomen: Soft, appropriately tender to palpation, no guarding, no rebound. Bandaids removed, steri strips in place, intact with old blood. Bowel sounds active. Extremities: Moves all extremities. Bilateral calves soft and non-tender. Current Medications: Current Medications Sig/Nolberto Start time Last Medication Dose Route Stop Time Status Admin Acetaminophen 650 MG Q6P PRN 07/04 0200 AC PO Ampicillin Sodium/ 3,000 MG Q6 07/04 0600 AC 07/06 Sulbactam Sodium IV 0537 Sodium Chloride 100 ML Dextrose/Sodium 1,000 ML .Q20H 07/05 1445 AC 07/05 Chloride IV 2054 Dextrose/Sodium 1,000 ML .Q10H 07/04 0200 DC 07/05 Chloride IV 0311 Heparin Sodium 5,000 UNIT Q8 07/04 2200 AC 07/06 (Porcine) SC 0537 Ketorolac 15 MG .STK-MED ONE 07/05 1849 DC Tromethamine IM 07/05 1850 Ketorolac 30 MG .STK-MED ONE 07/05 1832 DC Tromethamine IM 07/05 1833 Ketorolac 15 MG Q6-PRN PRN 07/04 0200 AC 07/06 Tromethamine IV 0137 Metoclopramide HCl 10 MG Q6P PRN 07/05 1545 AC 07/05 IV 1639 Morphine Sulfate 2 MG Q2P PRN 07/04 0200 AC 07/05 IV 1838 Morphine Sulfate 4 MG Q2P PRN 07/04 0200 AC IV Ondansetron HCl 4 MG .STK-MED ONE 07/05 1421 DC IM 07/05 1422 Ondansetron HCl 4 MG Q6P PRN 07/04 0200 AC 07/05 IV 1429 Pantoprazole Sodium 40 MG DAILY 07/05 1335 AC 07/05 IV 1403 Patient Medication 1 ED ONE ONE 07/05 1630 DC 07/05 Teaching ED 07/05 1631 1722 Results Last 48 Hours of Labs: Laboratory Tests 07/05 0638 Chemistry Sodium (137 - 145 mmol/L) 141 Potassium (3.5 - 5.1 mmol/L) 4.2 Chloride (98 - 107 mmol/L) 104 Carbon Dioxide (22 - 30 mmol/L) 26 Anion Gap (5 - 16) 11 BUN (9 - 20 mg/dL) 10 Creatinine (0.7 - 1.2 mg/dL) 0.7 Estimated GFR (>60 ml/min) > 60 BUN/Creatinine Ratio (7 - 25 %) 14.3 Hematology CBC w Diff NO MAN DIFF REQ WBC (4.8 - 10.8 /CUMM) 14.1 H RBC (4.70 - 6.10 /CUMM) 3.86 L Hgb (14.0 - 18.0 G/DL) 12.1 L Hct (42 - 52 %) 35.8 L MCV (80.0 - 94.0 FL) 92.7 MCH (27.0 - 31.0 PG) 31.4 H MCHC (33.0 - 37.0 G/DL) 33.9 RDW (11.5 - 14.5 %) 13.1 Plt Count (130 - 400 /CUMM) 152 MPV (7.4 - 10.4 FL) 9.5 Gran % (42.2 - 75.2 %) 86.2 H Lymphocytes % (20.5 - 51.1 %) 6.8 L Monocytes % (1.7 - 9.3 %) 7.0 Eosinophils % (0 - 5 %) 0 Basophils % (0.0 - 2.0 %) 0 Absolute Granulocytes (1.4 - 6.5 /CUMM) 12.1 H Absolute Lymphocytes (1.2 - 3.4 /CUMM) 1.0 L Absolute Monocytes (0.10 - 0.60 /CUMM) 1.0 H Absolute Eosinophils (0.0 - 0.7 /CUMM) 0 Absolute Basophils (0.0 - 0.2 /CUMM) 0 Assessment/Plan Assessment/Plan This is a 47 year old male, POD 2, s/p laparoscopic appendectomy for acute appendicitis with perforation on 07/04/2017. - Pain control: Discontinue IV morphine, added tramadol, IV toradol PRN pain, acetaminophen po - Clear liquid diet, continue IVF at 50 cc/hr, consider advancement to fulls or regular diet - Continue unasyn - Antiemetic: reglan, zofran - GI prophylaxis: Protonix IV - Follow up am labs, CBC, BMP pending - DVT prophylaxis: SQH, SCDs. OOB as tolerated. - Will discuss with Dr. Isaac. Likely discharge after diet advancement. Core Measures Venous Thromboembolism VTE Risk Factors Age>40 No Mechanical VTE Prophylaxis d/t N/A MechProphylax Ordered No VTE Pharm Prophylaxis d/t NA PharmProphylax ordered
[2017-07-06 09:47] LABS: ABSOLUTE BASOPHIL COUNT 0 /CUMM (0.0-0.2); ABSOLUTE EOSINOPHIL COUNT 0.1 /CUMM (0.0-0.7); ABSOLUTE GRANULOCYTE CT 7.8 /CUMM (1.4-6.5); ABSOLUTE LYMPH COUNT 1.4 /CUMM (1.2-3.4); BASOPHIL % 0.2 % (0.0-2.0); EOSINOPHIL % 1.2 % (0-5); GRANULOCYTE % 75.2 % (42.2-75.2); HEMATOCRIT 37.7 % (42-52); MEAN CORPUSCULAR HGB 31.3 PG (27.0-31.0); MEAN PLATELET VOLUME 9.6 FL (7.4-10.4); PLATELET COUNT 188 /CUMM (130-400); RBC DISTRIBUTION WIDTH 13.1 % (11.5-14.5); WHITE BLOOD CELL COUNT 10.4 /CUMM (4.8-10.8)
[2017-07-06 13:58] VITALS: BP 100/70; BP 112/70
--- NOTE | 2017-07-06 15:05 | PN- General Surgery ---
Surgical Brief Attending Note Brief Attending Note: Patient seen and examined vital signs labs reviewed and agree with today's PA note overall patient is doing well this afternoon no signs of worsening infection. However he still feels bloated and belches after eating so despite having bowel movements we should probably observe him overnight make sure he doesn't get nauseous and vomits again. Continue antibiotics can stop the IV fluids also explained to him that when he gets home there is a chance that he develops an abscess but it wouldn't start to show signs until about a week from now.
[2017-07-06 21:53] VITALS: BP 131/85
[2017-07-07 06:20] VITALS: BP 128/80
--- NOTE | 2017-07-07 10:05 | PN- General Surgery ---
See Addendum Subjective Subjective: pod#3 s/p lap appy c/o onset of belching with start of full liquid diet denies vomiting +flatus, no bm denies cp, sob frequently ambulating independently Objective Vital Signs and I&Os Vital Signs Date Time Temp Pulse Resp B/P B/P Pulse O2 O2 Flow FiO2 Mean Ox Delivery Rate / 0620 98.8 81 20 128/80 93 Room Air 07/06 2153 98.6 98 18 131/85 94 07/06 1358 99.5 75 20 112/70 99 Room Air Intake & Output / 1600 / 0800 07/07 0000 / 1600 07/06 0800 07/06 0000 Intake Total 505 871 2802 760 560 Output Total 450 250 950 800 Balance -150 450 410 -40 560 Intake, IV 300 100 400 400 200 Intake, Oral 600 960 360 360 Number 2 1 Bowel Movements Output, Urine 450 250 950 800 Physical Exam: cv: rrr lungs: clear abd: soft, wounds c/d/i no guarding to palp hypoactive bs ext: warm, no calf tenderness distal cms intact Assessment/Plan Assessment/Plan surgical stable plan advance diet per attending cont oob/ambualte dc planning Core Measures Venous Thromboembolism VTE Risk Factors Age>40 No Mechanical VTE Prophylaxis d/t N/A MechProphylax Ordered No VTE Pharm Prophylaxis d/t NA PharmProphylax ordered
[2017-07-07 15:06] VITALS: BP 120/80
[2017-07-07 23:02] VITALS: BP 126/80
[2017-07-08 06:20] VITALS: BP 145/94
--- NOTE | 2017-07-08 10:45 | PN- General Surgery ---
See Addendum Subjective Subjective: UNCOMFORTABLE OVERNIGHT HAD LOOSE BM THIS MORNING COMPLAINING OF NAUSEA Objective Vital Signs and I&Os Vital Signs Date Time Temp Pulse Resp B/P B/P Pulse O2 O2 Flow FiO2 Mean Ox Delivery Rate 07/08 0620 99.3 98 18 145/94 94 Room Air 07/07 2302 100.4 95 20 126/80 94 Room Air 07/07 1506 98.4 117 20 120/80 95 Intake & Output 07/08 1600 07/08 0800 07/08 0000 07/07 1600 07/07 0800 07/07 0000 Intake Total 765 2000 1480 300 700 Output Total 1250 400 450 250 Balance -485 2000 1080 -150 450 Intake, IV 600 800 400 300 100 Intake, Oral 165 1200 1080 600 Number 2 1 Bowel Movements Output, Urine 1250 400 450 250 Patient 204 lb 193 lb Weight Weight Bed scale Measurement Method ALERT AND ORIENTED VSS HEART-RRR WITHOUT MRG CHEST-CTA SYMMETRIC ABD -ROUNDED WITH MILD DISTENTION AND GENERALIZED SORENESS FAINT BS EXT -SOFT WITHOTU EDEMA Assessment/Plan Assessment/Plan POD4 LAP/APPY -INCREACED NAUSEA AND PAIN THIS AM WITH GENERALIZED SORENESS ON EXAM -WORSE THEN YESTERDAY LABS WNL XRAY -ABDOMINAL SERIES SERIA; ADB EXAMS OOB - AMBULATING Core Measures Venous Thromboembolism VTE Risk Factors Age>40 No Mechanical VTE Prophylaxis d/t N/A MechProphylax Ordered No VTE Pharm Prophylaxis d/t NA PharmProphylax ordered
[2017-07-08 12:19] LABS: ABSOLUTE BASOPHIL COUNT 0 /CUMM (0.0-0.2); ABSOLUTE EOSINOPHIL COUNT 0.2 /CUMM (0.0-0.7); ABSOLUTE GRANULOCYTE CT 7.8 /CUMM (1.4-6.5); ABSOLUTE LYMPH COUNT 1.3 /CUMM (1.2-3.4); ABSOLUTE MONOCYTE COUNT 1.6 /CUMM (0.10-0.60); BASOPHIL % 0.2 % (0.0-2.0); EOSINOPHIL % 2.1 % (0-5); GRANULOCYTE % 71.2 % (42.2-75.2); HEMATOCRIT 37.7 % (42-52); MEAN CORPUSCULAR HGB 30.8 PG (27.0-31.0); MEAN CORPUSCULAR HGB CONC 33.6 G/DL (33.0-37.0); MEAN CORPUSCULAR VOLUME 91.7 FL (80.0-94.0); PLATELET COUNT 184 /CUMM (130-400); RBC DISTRIBUTION WIDTH 13.5 % (11.5-14.5); RED BLOOD CELL CT 4.11 /CUMM (4.70-6.10)
--- NOTE | 2017-07-08 12:32 | RADIOLOGY REPORT ---
EXAMINATION: XR ABDOMEN MULTIPLE VIEWS CLINICAL INDICATION: Abdominal pain. Status post recent appendectomy. COMPARISON: CT abdomen and pelvis 07/04/2017. TECHNIQUE: 3 views of the abdomen. FINDINGS: There are gas-filled dilated loops of small bowel measuring up to 6 cm in diameter. There is moderate gaseous proximal stomach. No gastric dilatation. There is no significant gas seen in the colon. Differential air-fluid levels are present on upright view. No pneumatosis or bowel wall thickening. Appearances of a distal small bowel obstruction. Results called to surgical PA (Kaylie Mckinney) at 1225 hours. IMPRESSION: Distal small bowel obstruction.
[2017-07-08 15:06] VITALS: BP 120/80
[2017-07-08 22:10] VITALS: BP 143/88
[2017-07-09 06:20] VITALS: BP 152/90
--- NOTE | 2017-07-09 07:30 | PN- General Surgery ---
See Addendum Subjective Subjective: Feeling significantly better after NGT was placed. pain 3/10 mid upper abdomen. Objective Vital Signs and I&Os Vital Signs Date Time Temp Pulse Resp B/P B/P Pulse O2 O2 Flow FiO2 Mean Ox Delivery Rate 07/09 0620 97.7 80 20 152/90 96 Room Air 07/08 2210 98.2 89 20 143/88 92 Room Air 07/08 1506 98.4 91 20 120/80 94 07/08 0800 Room Air Intake & Output 07/09 0807/09 0000 07/08 1600 07/08 0807/08 0000 07/07 1600 Intake Total 800 800 972 455 0446 1480 Output Total 1600 160 879 2935 400 Balance -800 300 440 -485 2000 1080 Intake, IV 800 800 600 600 800 400 Intake, Oral 237 360 7268 1080 Number 6 2 1 Bowel Movements Output, 1000 Gastric Drainage Output, Urine 600 025 600 5049 400 Patient 204 lb 193 lb Weight Weight Bed scale Measurement Method Physical Exam: Well-developed well-nourished Appears uncomfortable. Pale-appearing HEENT: Atraumatic, extraocular motion intact NG tube is placed, small amount of bilious material output (canister was recently changed) Neck: Supple, no lymphadenopathy Respiratory: No respiratory distress Abdomen: Softly distended, mild tenderness mid abdominal region, no bowel sounds Extremities: No edema, no calf pain Neuro: Alert and oriented x3 Psych: Mood affect normal, normal memory normal judgment. Skin: Warm and dry, no rash on exposed skin Results Last 48 Hours of Labs: Laboratory Tests 07/08 1156 Chemistry Sodium (137 - 145 mmol/L) 138 Potassium (3.5 - 5.1 mmol/L) 3.8 Chloride (98 - 107 mmol/L) 98 Carbon Dioxide (22 - 30 mmol/L) 29 Anion Gap (5 - 16) 10 BUN (9 - 20 mg/dL) 7 L Creatinine (0.7 - 1.2 mg/dL) 0.8 Estimated GFR (>60 ml/min) > 60 BUN/Creatinine Ratio (7 - 25 %) 8.8 Hematology CBC w Diff NO MAN DIFF REQ WBC (4.8 - 10.8 /CUMM) 11.0 H RBC (4.70 - 6.10 /CUMM) 4.11 L Hgb (14.0 - 18.0 G/DL) 12.7 L Hct (42 - 52 %) 37.7 L MCV (80.0 - 94.0 FL) 91.7 MCH (27.0 - 31.0 PG) 30.8 MCHC (33.0 - 37.0 G/DL) 33.6 RDW (11.5 - 14.5 %) 13.5 Plt Count (130 - 400 /CUMM) 184 MPV (7.4 - 10.4 FL) 9.0 Gran % (42.2 - 75.2 %) 71.2 Lymphocytes % (20.5 - 51.1 %) 12.1 L Monocytes % (1.7 - 9.3 %) 14.4 H Eosinophils % (0 - 5 %) 2.1 Basophils % (0.0 - 2.0 %) 0.2 Absolute Granulocytes (1.4 - 6.5 /CUMM) 7.8 H Absolute Lymphocytes (1.2 - 3.4 /CUMM) 1.3 Absolute Monocytes (0.10 - 0.60 /CUMM) 1.6 H Absolute Eosinophils (0.0 - 0.7 /CUMM) 0.2 Absolute Basophils (0.0 - 0.2 /CUMM) 0 Assessment/Plan Assessment/Plan Postop day #5 status post laparoscopic appendectomy complicated by perforated appendix and now subsequent ileus Continue NG tube, n.p.o., IV fluids Abdominal x-ray this morning Pain medication as needed, IV Tylenol ordered, try to avoid narcotics Ambulate Heparin subcu As needed antiemetics Core Measures Venous Thromboembolism VTE Risk Factors Age>40 No Mechanical VTE Prophylaxis d/t N/A MechProphylax Ordered No VTE Pharm Prophylaxis d/t NA PharmProphylax ordered
--- NOTE | 2017-07-09 11:42 | RADIOLOGY REPORT ---
EXAMINATION: XR ABDOMEN MULTIPLE VIEWS CLINICAL INDICATION: Abdominal pain. Presumptive diagnosis of SBO. Status post recent appendectomy. COMPARISON: Two-view abdomen dated 07/08/[address] scan of the abdomen and pelvis dated 07/04/2017. TECHNIQUE: 2 views of the abdomen performed on 3 images. FINDINGS: Enteric tube is seen in the left upper quadrant. Mild gaseous distention of the stomach is seen. There are persistent abnormal dilated small bowel loops with differential air-fluid levels. The small bowel loops measure up to 7 cm in diameter as compared to 6 cm on 07/08/2017. There is now abnormal small bowel wall thickening and edema seen. No pneumatosis or evidence of free air noted. There is now some gas noted in the right colon and in the distal descending and rectosigmoid colon region. IMPRESSION: Findings are consistent with ongoing severe ileus pattern. Compared to the prior exam, the degree of small bowel distention has increased and there are now changes seen reflective of small bowel wall thickening and edema. These findings raise the suspicion of small bowel ischemia or inflammation. Close clinical correlation is requested. Follow-up CT scan may be indicated. This urgent result was discussed with surgical JANI Craig 07/09/2017, 10:55 AM and it was ascertained that the content and urgency of this report was understood at the time of direct communication.
[2017-07-09 12:10] LABS: ABSOLUTE BASOPHIL COUNT 0 /CUMM (0.0-0.2); ABSOLUTE EOSINOPHIL COUNT 0.2 /CUMM (0.0-0.7); ABSOLUTE GRANULOCYTE CT 5.8 /CUMM (1.4-6.5); ABSOLUTE LYMPH COUNT 1.1 /CUMM (1.2-3.4); ABSOLUTE MONOCYTE COUNT 0.9 /CUMM (0.10-0.60); BASOPHIL % 0.4 % (0.0-2.0); EOSINOPHIL % 1.9 % (0-5); GRANULOCYTE % 73.1 % (42.2-75.2); HEMATOCRIT 36.4 % (42-52); MEAN CORPUSCULAR HGB 31.5 PG (27.0-31.0); MEAN CORPUSCULAR HGB CONC 34.8 G/DL (33.0-37.0); MEAN CORPUSCULAR VOLUME 90.7 FL (80.0-94.0); MEAN PLATELET VOLUME 8.3 FL (7.4-10.4); RBC DISTRIBUTION WIDTH 13.4 % (11.5-14.5); RED BLOOD CELL CT 4.01 /CUMM (4.70-6.10)
[2017-07-09 12:22] LABS: PLATELET COUNT 289 /CUMM (130-400)
[2017-07-09 14:46] VITALS: BP 149/93
[2017-07-09 22:37] VITALS: BP 160/90
[2017-07-10 05:54] VITALS: BP 134/97
--- NOTE | 2017-07-10 08:55 | PN- General Surgery ---
See Addendum Subjective Subjective: Patient continues to improve. Passed copious amounts of flatus overnight. No nausea. Denies chest pain, shorntess of breath and difficulty breathing. Has been voiding. Had small amount of formed stool in bm yesterday. Objective Vital Signs and I&Os Vital Signs Date Time Temp Pulse Resp B/P B/P Pulse O2 O2 Flow FiO2 Mean Ox Delivery Rate 07/10 0554 98.2 77 20 134/97 95 Room Air 07/09 2237 98.1 74 20 160/90 96 07/09 1446 98.7 75 20 149/93 96 Room Air Intake & Output 07/10 1600 07/10 0800 / 0000 07/09 1600 07/09 0800 07/09 0000 Intake Total 1050 800 800 800 800 Output Total 501 623 3728 500 Balance 1050 650 10 -800 300 Intake, IV 900 800 800 800 800 Intake, Oral 0 Intake, Other 150 Output, 622 795 7713 Gastric Drainage Output, Urine 550 600 500 Physical Exam: General: AAO x3, no acute distress Cardiac: RRR, s1s2 Pulm: CTA bilaterally, non-labored Abd: Soft, non-tender, ng tube remains in place Extremiteis: Neurovascularly intact. Bilateral calves soft and non-tender Assessment/Plan Assessment/Plan This is a 47 year old male, POD 6 s/p lap appy for perf, post op ileus -Abdominal multiview xray now, then consider clamp/clears if clinically improved -Continue iv abx -Continue oob -Hep sub q for dvt ppx Core Measures Venous Thromboembolism VTE Risk Factors Age>40 No Mechanical VTE Prophylaxis d/t N/A MechProphylax Ordered No VTE Pharm Prophylaxis d/t NA PharmProphylax ordered
--- NOTE | 2017-07-10 09:55 | RADIOLOGY REPORT ---
EXAMINATION: XR ABDOMEN MULTIPLE VIEWS CLINICAL INDICATION: Abdominal distention and vomiting. COMPARISON: Prior radiographs dated 07/09/2017 and 07/08/2017; CT abdomen and pelvis dated 07/04/2017. TECHNIQUE: 2 AP views of the abdomen and pelvis are submitted. FINDINGS: A nasogastric tube is seen with tip positioned in the gastric body. There are markedly dilated proximal small bowel loops, the largest showing a caliber of 6.2 cm. The appearance is mildly improved from 07/09/2017. There is decompression of more distal small bowel loops and the colon. No free intraperitoneal air is seen on these supine views. There are no unusual soft tissue calcifications. No acute osseous abnormality is seen. IMPRESSION: Findings are consistent with a persistent, improved small bowel obstruction. A nasogastric tube is seen as above. Consider continued radiographic follow-up.
[2017-07-10 15:05] VITALS: BP 146/92
[2017-07-10 22:41] VITALS: BP 120/80
[2017-07-11 05:43] VITALS: BP 120/82
--- NOTE | 2017-07-11 09:03 | RADIOLOGY REPORT ---
EXAMINATION: XR ABDOMEN MULTIPLE VIEWS CLINICAL INDICATION: Evaluate for improvement of small bowel obstruction. COMPARISON: Abdominal x-ray 07/10/2017. TECHNIQUE: Supine and upright views of the abdomen were obtained. FINDINGS: The study demonstrates the enteric tube with the tip and sidehole within the gastric lumen. There has been interval decrease in the prominence of the dilated loops of small bowel, and no significant fluid levels are demonstrated on the current study. There is no free intra-abdominal air. The osseous structures are unremarkable. The paravertebral structures appear normal. There may be a trace pleural effusion on the left. IMPRESSION: 1. There has been interval decrease in the caliber of and fluid levels in the previously dilated loops of small bowel.
--- NOTE | 2017-07-11 12:21 | PN- General Surgery ---
Surgical Brief Attending Note Brief Attending Note: feeling better with bowel function/exam improved. plan for NG clamping today. start diet tomorrow if tolerated.
[2017-07-11 16:21] VITALS: BP 142/77
[2017-07-11 22:14] VITALS: BP 142/90
[2017-07-12 06:20] VITALS: BP 152/104
--- NOTE | 2017-07-12 07:25 | PN- General Surgery ---
See Addendum Subjective Subjective: No events overnight. Patient feeling well this am. Denies any abdominal pain. Denies any nausea, vomiting, chest pain, or SOB. Tolerating NGT clamp since 3 pm yesterday. Admits to passing flatus and has >10 episodes of diarrhea overnight since NGT has been clamped. Voiding freely. Objective Vital Signs and I&Os Vital Signs Date Time Temp Pulse Resp B/P B/P Pulse O2 O2 Flow FiO2 Mean Ox Delivery Rate 07/12 06 98.4 80 20 152/104 95 Room Air 07/11 2214 98.2 76 20 142/90 95 Room Air 07/11 1621 98.2 81 20 142/77 97 Intake & Output 07/12 0800 / 0000 07/11 1600 07/11 0800 07/11 0000 / 1600 Intake Total 700 650 462 5757 1375 800 Output Total 350 Balance 700 208 788 0064 1375 800 Intake, IV 700 300 525 800 800 800 Intake, Other 325 575 Output, 350 Gastric Drainage Physical Exam: Afebrile, hypertensive (150/104) this am. Otherwise VSS. HENT: NGT in place. Clamped. Cardiac: RRR Pulmonary: CTAB Abdominal: Incisions c/d/i. + hypoactive BS. Soft, non distended, non tender to palpation. No rebound or guarding. Assessment/Plan Assessment/Plan A/P: 47 year old male, POD #6 s/p lap appy for perforated acute appendicitis complicated by post op ileus. AXR yesterday shows improvement. Tolerated NGT clamp overnight without abdominal pain and with return of bowel function. - d/c NGT - Advance to clear liquid diet - Encourage OOB/ambulation - Encourage IS - Hypertension - Hydralazine prn - Continue IV abx - DVT ppx - HSQ - Pt d/w Dr. Seo who agrees with above plan Core Measures Venous Thromboembolism VTE Risk Factors Age>40 No Mechanical VTE Prophylaxis d/t N/A MechProphylax Ordered No VTE Pharm Prophylaxis d/t NA PharmProphylax ordered
[2017-07-12 13:48] VITALS: BP 138/90
[2017-07-12 22:29] VITALS: BP 138/90
[2017-07-13 06:00] VITALS: BP 144/72
--- NOTE | 2017-07-13 07:58 | PN- General Surgery ---
See Addendum Subjective Subjective: No complaints presently. Stool reported to be more formed, passing flatus. Tolerated clear liquid diet yesterday. Denies nausea or vomitting. No c/o chest pain, shortness of breath and difficulty breathing. States he feels well. Objective Vital Signs and I&Os Vital Signs Date Time Temp Pulse Resp B/P B/P Pulse O2 O2 Flow FiO2 Mean Ox Delivery Rate 07/13 599 98.5 83 18 144/72 96 Room Air 07/12 2229 98.3 70 20 138/90 95 Room Air 07/12 1348 98.2 74 20 138/90 97 Room Air Intake & Output 07/13 0800 / 0000 07/12 1600 07/12 0800 07/12 0000 07/11 1600 Intake Total 1350 700 300 525 Output Total 2 350 Balance -2 1350 700 300 175 Intake, IV 750 700 300 525 Intake, Oral 600 Number 1 Bowel Movements Output, 350 Gastric Drainage Output, Stool 2 Physical Exam: General: Alert and oriented x3, no acute distress Cards: RRR, s1s2 Pulm: CTA bilaterally Abd: Soft, non-tender, non-distended, +bs Ext: Moves all extremities, neurovascular status grossly intact, bilateral calves soft and non-tender Assessment/Plan Assessment/Plan This is a 47 year old male, POD 9 s/p lap appy for perf, post op course complicated by prolonged ileus, resolved with conservative tx including bowel rest and ngt decompression, now progressing well. -Full liquid diet for lunch today, will advance slowly -Continue unasyn q6 -OOB, ambulation encouraged -Continue current pain regimen, limit narcotic use -Hep sub q for dvt ppx Will discuss plan of care with Dr. Seo Core Measures Venous Thromboembolism VTE Risk Factors Age>40 No Mechanical VTE Prophylaxis d/t N/A MechProphylax Ordered No VTE Pharm Prophylaxis d/t NA PharmProphylax ordered
[2017-07-13 14:01] VITALS: BP 110/80
== END 2017-07-13 17:55 | DRG 339 ==
LOC: ERH 23:42 → ERHI 07-04 01:33 → ENRESERV 07-04 02:17 → 2NA 07-04 02:19 → ENTRNSPT 07-04 16:17 → EDTRNSPTSTS 07-04 16:28 → EDTRNSPT 07-04 16:28 → CMPTRNSPT 07-04 16:45 → 2NA 07-10 16:13 → ENPENDDIS 07-13 12:31 → 2NA 07-13 17:55
PROVIDERS: Nurse Practitioner; Pediatrics; Physician Assistant; Physician Assistant Surgical; Surgery
PROC: 0DTJ4ZZ Resection of Appendix, Percutaneous Endoscopic Approach (ICD-10-PCS; principal; 2017-07-04)
PROC: 3E0T3BZ Introduction of Anesthetic Agent into Peripheral Nerves and Plexi, Percutaneous Approach (ICD-10-PCS; 2017-07-04)
PROC: 0DH67UZ Insertion of Feeding Device into Stomach, Via Natural or Artificial Opening (ICD-10-PCS; 2017-07-09)
PROC: 3E0G76Z Introduction of Nutritional Substance into Upper GI, Via Natural or Artificial Opening (ICD-10-PCS; 2017-07-09)
DX: K35.3 Acute appendicitis with localized peritonitis (principal); K56.7 Ileus, unspecified; K21.9 Gastro-esophageal reflux disease without esophagitis
CPT/HCPCS: 2NASP; 36415; 36592; 74021; 74176; 81001; 82436; 88304; 93005; 93010; 96374; 96375; J0131; J1644; J1885; J2405; J2765; J3490; J7042